=== PATIENT | female | born 1950 | race Caucasian/White ===

== ENCOUNTER 2019-01-23 03:25 | Emergency (ER) | payer BC, MEDICARE, OTHER ==
[~2019-01-23] VITALS: Ht 152.4 cm; Wt 84.1 kg
[~2019-01-23 03:25] MED LIST: ACTOS 15MG TAB15 MG PO; AMBIEN10 MG PO; ASACOL PO; ASPIRIN E.C. 8181 MG PO; BETAPACE 120MG120 MG PO; CARDI-OMEGA1000 MG PO; CITRACAL + D 251 TAB PO; CLARITIN-D 24 H1 T24 PO; CLARITIN10 MG PO; COSAMIN DS 4001 TAB PO; CULTURELLE10 Billion PO; DIOVAN HCT 12.51 TA2 PO; DIOVAN80 MG PO; FE-TABS325 MG PO; FLONASE NASAL S16 GM NS; INDERAL PO; PROTONIX 40MG T40 MG PO; VITAMIN E1000 U/CAP PO; ZOCOR20 MG PO; [UNRECOGNIZED DRUG - OTHER] PO
[2019-01-23 03:29] VITALS: TEMP 98
[2019-01-23 03:43] LABS: HEMATOCRIT 46.1 % (37.0-47.0); HEMOGLOBIN 15.9 g/dl (12.5-16.0); MEAN CELL VOLUME 88 fl (80.0-100.0); MEAN CORPUSCULAR HEMOGLOBIN 31 pg (27.0-31.0); MEAN CORPUSCULAR HGB CONC 35 g/dl (33.0-37.0); MEAN PLATELET VOLUME 10.4 fl (7.4-10.4); PLATELET COUNT 281 K/mm3 (130-400); RED BLOOD COUNT 5.22 M/mm3 (4.10-5.30); REDCELL DISTRIBUTION WIDTH-CV 12.4 % (11.5-14.5)
[2019-01-23 03:49] LABS: INR 0.9 (0.8-3.0)
[2019-01-23 03:52] LABS: PARTIAL THROMBOPLASTIN TIME 29.2 SECONDS (26.0-37.0)
[2019-01-23 03:54] LABS: ALANINE AMINOTRANSFERASE 35 U/L (9-52); ALBUMIN 4.9 gm/dL (3.5-5.0); ALKALINE PHOSPHATASE 88 U/L (50-136); ANION GAP 13 mmol/L (7-16); AST,SGOT 32 U/L (15-37); BILIRUBIN,TOTAL 0.6 mg/dL (0.0-1.0); BLOOD UREA NITROGEN 20 mg/dL (7-17); CALCIUM 10.2 mg/dL (8.4-10.2); CARBON DIOXIDE 27 mmol/L (22-30); CHLORIDE 99 mmol/L (98-107); CREATININE, serum 0.72 (0.52-1.25); GLUCOSE 281 mg/dL (74-106); LIPASE 75 U/L (23-300); MAGNESIUM 1.6 mg/dL (1.6-2.3); POTASSIUM 3.8 mmol/L (3.4-5.0); SODIUM 139 mmol/L (137-145); TOTAL PROTEIN 8.4 gm/dL (6.4-8.2)
[2019-01-23 03:57] LABS: C-REACTIVE PROTEIN < 0.5 mg/dL (0.0-0.9)
[2019-01-23 04:05] LABS: TROPONIN-I < 0.012 ng/mL (0.000-0.035)
[2019-01-23 04:26] LABS: ANISOCYTOSIS 1+; BAND 15 % (0-10); BASOPHIL 1 % (0-2); LYMPHOCYTE 9 % (20.0-51.0); NEUTROPHILS 69 % (42.0-75.2); PLATELET ESTIMATE NORMAL (NORMAL)
[2019-01-23] MEDS ORDERED: ZOFRAN ODT4 MG PO (06:55)
[2019-01-23 07:06] LABS: BASO # 0.1 (0.0-0.2); BASO % 0.3 % (0.0-2.0); EOS % 0.2 % (0-4.0); GRAN # 13.4 (1.4-6.5); GRAN % 87.7 % (42.2-75.2); HEMATOCRIT 41.2 % (37.0-47.0); HEMOGLOBIN 14.4 g/dl (12.5-16.0); LYMPH # 0.8 (1.2-3.4); LYMPH % 5.2 % (20.0-51.0); MEAN CELL VOLUME 88 fl (80.0-100.0); MEAN CORPUSCULAR HEMOGLOBIN 31 pg (27.0-31.0); MEAN CORPUSCULAR HGB CONC 35 g/dl (33.0-37.0); MEAN PLATELET VOLUME 10.3 fl (7.4-10.4); MONO % 6.3 % (1.7-9.3); PLATELET COUNT 238 K/mm3 (130-400); RED BLOOD COUNT 4.66 M/mm3 (4.10-5.30); REDCELL DISTRIBUTION WIDTH-CV 12.6 % (11.5-14.5)
[2019-01-23 08:41] VITALS: BP 109/61; PULSE 95
== END 2019-01-23 08:29 | disposition home or self-care (01) ==
LOC: COL.ER 03:25
PROVIDERS: Emergency Medicine
DX: R11.10 Vomiting, unspecified (principal); R19.7 Diarrhea, unspecified; I10 Essential (primary) hypertension; E78.5 Hyperlipidemia, unspecified; E11.9 Type 2 diabetes mellitus without complications; Z79.51 Long term (current) use of inhaled steroids; Z79.84 Long term (current) use of oral hypoglycemic drugs; Z79.82 Long term (current) use of aspirin
CPT/HCPCS: C9113; J1170; J2405; J7030; Q9967

== ENCOUNTER → 2019-03-25 | Outpatient (CLI) | payer BC, MEDICARE, OTHER ==
[~2019-03-25] MED LIST changes: +ZOFRAN ODT4 MG PO
== END ==
LOC: MC.RAD 16:52
DX: Z12.31 Encounter for screening mammogram for malignant neoplasm of breast (principal); R92.1 Mammographic calcification found on diagnostic imaging of breast

== ENCOUNTER → 2019-03-30 | Outpatient (CLI) | payer BC, MEDICARE, OTHER | LOC: MC.RAD 14:00 | DX: R92.0 Mammographic microcalcification found on diagnostic imaging of breast (principal) ==

== ENCOUNTER → 2019-09-29 | Outpatient (CLI) | payer BC, MEDICARE, OTHER | LOC: MC.RAD 14:03 | DX: N64.89 Other specified disorders of breast (principal); R92.0 Mammographic microcalcification found on diagnostic imaging of breast | CPT/HCPCS: G0279 ==

== ENCOUNTER → 2020-04-04 | Outpatient (CLI) | payer BC, MEDICARE, OTHER | LOC: MC.RAD 10:15 | DX: R92.0 Mammographic microcalcification found on diagnostic imaging of breast (principal) ==

== ENCOUNTER → 2022-05-08 | Outpatient (CLI) | payer MEDICARE, BC, OTHER | LOC: MC.RAD 13:15 | DX: Z12.31 Encounter for screening mammogram for malignant neoplasm of breast (principal) ==

== ENCOUNTER → 2023-05-22 | Outpatient (CLI) | payer MEDICARE, BC ==
[2006-03-11 10:05] VITALS: TEMP 98.2
== END ==
LOC: MC.RAD 15:42
DX: Z12.31 Encounter for screening mammogram for malignant neoplasm of breast (principal)